=== PATIENT | female | born 1995 | race Caucasian/White ===

== ENCOUNTER → 2019-04-26 | Outpatient (CLI) | payer BC ==
[~2019-04-26] MED LIST: ACET65TA OR; VICO5TAB OR
--- NOTE | 2019-04-27 08:03 | REP ---
REASON: Cough. COMPARISON: 03/11/2010, the only prior. Patchy opacities are seen in the left upper and lower lobes. The right lung is clear. The pleural angles are sharp. The heart is not enlarged. The osseous structures are stable and intact. IMPRESSION:Left upper and left lower lobe pneumonia. Electronically Signed by Miguel Kincaid DO 05/01/2019 04:14 P
== END ==
LOC: M WUC 14:16
PROVIDERS: ATTEND Physician Assistant
DX: J18.9 Pneumonia, unspecified organism (principal)

== ENCOUNTER → 2019-11-19 | Outpatient (REF) | payer BC ==
[2019-11-19 22:28] LABS: CHLAMYDIA DNA AMPLIFICATION NEGATIVE (NEGATIVE); GC DNA AMPLIFICATION NEGATIVE (NEGATIVE)
== END ==
LOC: M SFHCLERA 14:22
PROVIDERS: ATTEND Physician Assistant
DX: Z11.3 Encounter for screening for infections with a predominantly sexual mode of transmission (principal)